=== PATIENT | male | born 1985 | race Caucasian/White ===

== ENCOUNTER 2024-03-11 14:23 | Observation (INO) ==
[2024-03-11] MEDS: ONDANSETRON INJ 2 MG/ML 2 ML VIAL IV STA (14:57)
[2024-03-11] MEDS: KETOROLAC TROMETHAMINE 15 MG/ML VIAL IV ONE (14:57)
[2024-03-11 15:04] LABS: Basophils # (auto) 0.04 K/uL (0.00-0.20); Basophils % (auto) 0.4 %; Eosinophils # (auto) 0.05 K/uL (0.00-0.50); Eosinophils % (auto) 0.5 %; Hematocrit (blood only) 45.2 % (42.0-52.0); Hemoglobin 15.4 g/dl (14.0-18.0); Immature Granulocytes # (auto) 0.02 K/uL (0.01-0.20); Immature Granulocytes % (auto) 0.2 %; Lymphocytes # (auto) 1.01 K/uL (1.20-3.40); Lymphocytes % (auto) 9.5 %; Mean Corpuscular Hgb Conc 34.1 g/dL (32.0-36.0); Mean Platelet Volume 11.3 fL (9.4-12.4); Monocytes # (auto) 0.76 K/uL (0.11-0.59); Monocytes % (auto) 7.1 %; Neutrophils # (auto) 8.75 K/uL (1.40-6.50); Neutrophils % (auto) 82.3 %; Platelet Count 220 K/uL (130-400); RDW Coefficient of Variation 12.4 % (11.5-14.5); RDW Standard Deviation 42.9 fL (36.4-46.3); Red Blood Count 4.81 M/uL (4.70-6.10); White Blood Count 10.63 K/ul (4.8-10.8)
[2024-03-11 15:20] LABS: Albumin Globulin Ratio 1.4 (0.9-2); Albumin Level 4.6 gm/dl (3.4-5.0); BUN Creatinine Ratio 10.5 (10-20); Bilirubin,Total 0.8 mg/dl (0.2-1.0); Calcium 9.5 mg/dl (8.6-10.3); Globulin 3.2 gm/dl (2.5-4.0); Total Protein 7.8 gm/dl (6.0-8.3)
--- NOTE | 2024-03-11 15:24 | Emergency Department Note ---
Impression & Plan Acute appendicitis ED Provider Note NAME: LEONOR PEREZ AGE: 38 SEX: M : 1985 ARRIVES VIA: Walk-In INFORMANT: Patient, ED PROVIDER(S): Anjel Kraus MD CHIEF COMPLAINT: Abdominal pain HPI: This 38-year-old male presenting for abdominal pain. Patient dates he has midepigastric abdominal pain that radiates into his right upper and lower quadrant. Has started since last night, persistent and worsening. Nausea without vomiting associate. No diarrhea. Able to eat but does have certain pain. Otherwise no shortness of breath, fever, chills. Never had this pain before. No previous abdominal surgeries. ROS: See above HPI for pertinent positives & negatives. A total of 10 systems reviewed and were otherwise negative. PAST MEDICAL HISTORY: See Below PAST SURGICAL HISTORY: See Below FAMILY HISTORY: See Below SOCIAL HISTORY: See Below HOME MEDICATIONS: See Below ALLERGIES: See Below VITALS: See Below PHYSICAL EXAMINATION: General: resting comfortably in no acute distress Head: Normocephalic and atraumatic Eyes: Normal inspection, extraocular muscles intact Ear, nose, throat: Normal external exam Neck: Normal range of motion Respiratory: lungs clear to auscultation bilaterally Cardiovascular: Regular rate/rhythm, no murmur GI: Midepigastric, right upper quadrant right lower quadrant tenderness to palpation, voluntary guarding Extremities: nontender, moves all extremities Neuro: The patient awake and alert, appropriately conversive, no focal deficits, symmetric faces Skin: Warm, dry, and intact MEDICAL DECISION MAKING: Is a 38-year-old male presenting for abdominal pain. Will do screening workup to include CT imaging, basic blood work, urinalysis, will give pain control IV with Toradol and antiemetic with Zofran -Bloodwork is reviewed showing no significant leukocytosis, anemia, electrolyte or creatinine abnormality -Patient CT imaging reveals acute uncomplicated appendicitis. Patient given IV Zosyn at this time, 4.5 g. Patient n.p.o. currently. Last meal was yesterday. -Care discussed with Dr. Horne for operative management. He will take the patient to the OR at 8 PM. Differential diagnosis: Appendicitis, cholecystitis, renal colic, bowel perforation, diverticulitis Independent History obtained from: Diagnostics interpreted by me: ECG: None Cardiac Monitoring: An order was placed for continuous cardiac monitoring. The monitor shows a rate of 84 with sinus rhythm. Past Med/Surg History Problem List (Updated 03/11/24 @ 19:20 by Anjel Kraus MD) Acute appendicitis (Acute) Social History Smoking Status: Never smoker Preferred Language: Martiniquais Feels Safe at Home: Yes Allergies Allergies Allergy/AdvReac Type Severity Reaction Status Date / Time PENICILLIN Allergy rash Uncoded 03/08/12 07:13 Home Meds Home Medications Medication Instructions Recorded Confirmed magnesium 1 tab PO DAILY 03/11/24 03/11/24 multivitamin 1 tab PO DAILY 03/11/24 03/11/24 omeprazole magnesium 20 mg 20 mg PO DAILY PRN Heartburn 03/11/24 03/11/24 tablet,delayed release (Prilosec OTC) Results & Data (ED) Vital Signs Vital Signs - 24 hr 03/11/24 14:28 03/11/24 15:09 03/11/24 16:22 Temperature 36.9 C Temperature Source Temporal Artery Scan Pulse Rate 97 H 91 H Pulse Rate [Apical] Pulse Rhythm Regular Pulse Strength Normal Respiratory Rate 18 Respiratory Effort / Characteristics Non-Labored Spontaneous Respiratory Depth Normal Respiratory Pattern Regular Blood Pressure 129/83 Blood Pressure [Left Arm] Blood Pressure Mean 98 Blood Pressure Mean [Left Arm] Blood Pressure Position Sitting Pulse Oximetry 98 98 Oxygen Delivery Method Room Air Room Air Sepsis Recent Fever Within 48 Hours No Sepsis New/Unexplained Change in Mental Status No Sepsis Action Taken by Nursing No Action Required 03/11/24 16:23 03/11/24 17:06 Temperature Temperature Source Pulse Rate Pulse Rate [Apical] 80 84 Pulse Rhythm Pulse Strength Respiratory Rate 16 18 Respiratory Effort / Characteristics Respiratory Depth Respiratory Pattern Blood Pressure Blood Pressure [Left Arm] 128/71 124/87 Blood Pressure Mean Blood Pressure Mean [Left Arm] 90 99 Blood Pressure Position Pulse Oximetry 99 100 Oxygen Delivery Method Sepsis Recent Fever Within 48 Hours Sepsis New/Unexplained Change in Mental Status Sepsis Action Taken by Nursing Laboratory Data 03/11/24 14:45 03/11/24 14:45 Lab Results 03/11/24 Range/Units 14:45 WBC 10.63 (4.8-10.8) K/ul RBC 4.81 (4.70-6.10) M/uL Hgb 15.4 (14.0-18.0) g/dl Hct 45.2 (42.0-52.0) % MCV 94.0 (80.0-100.0) fL MCH 32.0 (25.0-34.0) pg MCHC 34.1 (32.0-36.0) g/dL RDW Std Deviation 42.9 (36.4-46.3) fL RDW Coeff of Viky 12.4 (11.5-14.5) % Plt Count 220 (130-400) K/uL MPV 11.3 (9.4-12.4) fL Immature Gran % (Auto) 0.2 % Neut % (Auto) 82.3 % Lymph % (Auto) 9.5 % [place] % (Auto) 7.1 % Eos % (Auto) 0.5 % Baso % (Auto) 0.4 % Neut # (Auto) 8.75 H (1.40-6.50) K/uL Lymph # (Auto) 1.01 L (1.20-3.40) K/uL [place] # (Auto) 0.76 H (0.11-0.59) K/uL Eos # (Auto) 0.05 (0.00-0.50) K/uL Baso # (Auto) 0.04 (0.00-0.20) K/uL Immature Gran # (Auto) 0.02 (0.01-0.20) K/uL Sodium 136 (136-145) mmol/L Potassium 4.0 (3.5-5.1) mmol/L Chloride 102 (98-107) mmol/L Carbon Dioxide 27 (21-32) mmol/L Anion Gap 7 (3-11) BUN 10 (6-23) mg/dl Creatinine 0.95 (0.6-1.4) mg/dl Est Cr Clr Drug Dosing 102.0 ml/min eGFR 105.07 BUN/Creatinine Ratio 10.5 (10-20) Glucose 105 H (70-99(Fasting)) mg/dl Calcium 9.5 (8.6-10.3) mg/dl Total Bilirubin 0.8 (0.2-1.0) mg/dl AST 42 H (13-39) U/L ALT 18 (7-52) U/L Alkaline Phosphatase 67 (34-104) U/L Total Protein 7.8 (6.0-8.3) gm/dl Albumin 4.6 (3.4-5.0) gm/dl Globulin 3.2 (2.5-4.0) gm/dl Albumin/Globulin Ratio 1.4 (0.9-2) Lipase 10 L (11-82) U/L Administered Medications Discontinued Medications Piperacillin Sod/Tazobactam Sod (Zosyn) 4.5 gm in 100 mls @ 200 mls/hr IV NOW ONE; Protocol Stop: 03/11/24 16:35 Last Infusion: 03/11/24 17:04 Dose: Infused Documented By: Admin: 03/11/24 16:16 Dose: 200 mls/hr Documented By: SUZANNE Ioversol (Optiray 320 100ml) 90 ml IV ONCE ONE Stop: 03/11/24 15:32 Last Admin: 03/11/24 15:31 Dose: 90 ml Documented By: ANDREA Ketorolac Tromethamine (Ketorolac Tromethamine 15 Mg/Ml Vial) 15 mg IV NOW ONE Stop: 03/11/24 14:33 Last Admin: 03/11/24 14:57 Dose: 15 mg Documented By: SUZANNE Ondansetron HCl (Ondansetron Inj 2 Mg/Ml 2 Ml Vial) 4 mg IV NOW STA Stop: 03/11/24 14:33 Last Admin: 03/11/24 14:57 Dose: 4 mg Documented By: SUZANNE Imaging Data Radiologist's Impression: Abdomen/Pelvis CT 03/11/24 14:32 EXAM: CT Abdomen and Pelvis With Intravenous Contrast INDICATION: Intense abdominal pain and nausea. TECHNIQUE: Axial computed tomography images of the abdomen and pelvis with intravenous contrast. Sagittal and coronal reformatted images were created and reviewed. This CT exam was performed using one or more of the following dose reduction techniques: automated exposure control, adjustment of the mA and/or kV according to patient size, and/or use of iterative reconstruction technique. CONTRAST: 90ml of Optiray 320 was administered intravenously. COMPARISON: No relevant prior studies available. FINDINGS: Limitations: None. Lung bases: No abnormality noted. Pleural space: No visualized pleural effusion or pneumothorax. Heart: No abnormality noted. Mediastinum: No abnormality noted. ABDOMEN: Liver: No abnormality noted. Gallbladder and bile ducts: No calcified stones or surrounding fluid. Pancreas: Homogeneous enhancement. No mass, inflammation or ductal dilation. Spleen: No significant abnormality noted. Adrenals: No significant abnormality noted. Kidneys and ureters: Tiny hypodensity in the lower left kidney is likely this is too small to characterize. No further assessment required. Stomach and bowel: Mild small bowel ileus noted. Moderate colonic stool. No obstruction. PELVIS: Appendix: Mucosal thickening with surrounding inflammation. Appendix measures 1.3 mm in diameter. There is trace surrounding fluid without organization. Bladder: No filling defects to suggest mass or large stone. No inflammation. Reproductive: No abnormalities noted. ABDOMEN and PELVIS: Intraperitoneal space: No free air. No significant fluid collection. Bones/joints: No acute changes. Soft tissues: No significant abnormality noted. Vasculature: There is mild atherosclerotic plaque in the bilateral common iliac arteries. No aneurysm or dissection. Lymph nodes: No pathologically enlarged lymph nodes. IMPRESSION: Acute appendicitis without complication. ACT 112: Negative or not required by law. Electronically signed by Lizzie Funk 03-11-2024 3:53 PM Discharge Plan Visit Data Chief Complaint: Abdominal Pain Stated Complaint: SEVERE ABD, INTESTINAL PAIN ED Provider: Anjel Kraus Discharge Problem: Acute appendicitis Forms Stand Alone Forms: [facility] Prescriptions Prescriptions: No Action multivitamin [Multi-Vitamin] Tablet 1 tab PO DAILY omeprazole magnesium [Prilosec OTC] 20 mg Tablet,Delayed Release (Dr/Ec) 20 mg PO DAILY PRN (Reason: Heartburn) magnesium 1 tab PO DAILY Rx Instructions: otc, unknown dose Referrals Referrals: PCP,NO [Physician] -
[2024-03-11] MEDS: OPTIRAY 320 100ml IV ONE (15:31)
--- NOTE | 2024-03-11 15:54 | CT Scan Report ---
EXAM: CT Abdomen and Pelvis With Intravenous Contrast INDICATION: Intense abdominal pain and nausea. TECHNIQUE: Axial computed tomography images of the abdomen and pelvis with intravenous contrast. Sagittal and coronal reformatted images were created and reviewed. This CT exam was performed using one or more of the following dose reduction techniques: automated exposure control, adjustment of the mA and/or kV according to patient size, and/or use of iterative reconstruction technique. CONTRAST: 90ml of Optiray 320 was administered intravenously. COMPARISON: No relevant prior studies available. FINDINGS: Limitations: None. Lung bases: No abnormality noted. Pleural space: No visualized pleural effusion or pneumothorax. Heart: No abnormality noted. Mediastinum: No abnormality noted. ABDOMEN: Liver: No abnormality noted. Gallbladder and bile ducts: No calcified stones or surrounding fluid. Pancreas: Homogeneous enhancement. No mass, inflammation or ductal dilation. Spleen: No significant abnormality noted. Adrenals: No significant abnormality noted. Kidneys and ureters: Tiny hypodensity in the lower left kidney is likely this is too small to characterize. No further assessment required. Stomach and bowel: Mild small bowel ileus noted. Moderate colonic stool. No obstruction. PELVIS: Appendix: Mucosal thickening with surrounding inflammation. Appendix measures 1.3 mm in diameter. There is trace surrounding fluid without organization. Bladder: No filling defects to suggest mass or large stone. No inflammation. Reproductive: No abnormalities noted. ABDOMEN and PELVIS: Intraperitoneal space: No free air. No significant fluid collection. Bones/joints: No acute changes. Soft tissues: No significant abnormality noted. Vasculature: There is mild atherosclerotic plaque in the bilateral common iliac arteries. No aneurysm or dissection. Lymph nodes: No pathologically enlarged lymph nodes. IMPRESSION: Acute appendicitis without complication. ACT 112: Negative or not required by law. Electronically signed by Lizzie Funk 03-11-2024 3:53 PM
[2024-03-11] MEDS: PIPERACILLIN/TAZOBACTAM 4.5 GM/100 ML BAG IV ONE (16:16)
[2024-03-11 19:18] LABS: Appearance Urine Clear (Clear); Bilirubin Urine Negative (Negative); Blood Urine Negative (Negative); Color Urine Yellow; Glucose Urine UA Negative (Negative); Ketones Urine 1+ (Negative); Leukocyte Esterase Urine Negative (Negative); Nitrite Urine Negative (Negative); Protein Urine 1+ (Negative); Urobilinogen Urine Negative (Negative); pH Urine 5.5 (4.5-7.5)
[2024-03-11 19:30] LABS: Bacteria Urine None Seen (None Seen); Epithelial Cell Urine 0-2 /hpf (0-2); RBC Urine 0-2 /hpf (0-2); WBC Urine 0-5 /hpf (0-5)
[2024-03-11] MEDS ORDERED: PROPOFOL IV EMULSION 10 MG/ML 20 ML VIAL IV ONE (19:42)
[2024-03-11] MEDS ORDERED: DEXAMETHASONE SOD INJ 4 MG/ML VIAL ONE (19:42)
[2024-03-11] MEDS ORDERED: SUCCINYLCHOLINE CHLORIDE 20 MG/ML 10 ML VIAL IV ONE (19:42)
[2024-03-11] MEDS ORDERED: MIDAZOLAM HCL 1 MG/ML 2ML VIAL ONE (19:42)
[2024-03-11] MEDS ORDERED: ROCURONIUM BROMIDE 10 MG/ML 5 ML VIAL IV ONE (19:42)
[2024-03-11] MEDS ORDERED: ONDANSETRON INJ 2 MG/ML 2 ML VIAL ONE (19:42)
[2024-03-11] MEDS ORDERED: KETOROLAC 30 MG/ML VIAL ONE (19:42)
[2024-03-11] MEDS ORDERED: fentaNYL citrate PF 100 MCG/2 ML VIAL ONE (19:42)
[2024-03-11] MEDS ORDERED: SUGAMMADEX SODIUM 200 MG/2 ML VIAL IV ONE (19:45)
--- NOTE | 2024-03-11 19:47 | Surgery Consultation ---
Date of Consultation March 11, 2024 Assessment & Plan (1) Acute appendicitis: His CT images were personally viewed and interpreted by myself He has a dilated appendix with inflammatory changes surrounding consistent with appendicitis Will plan on a laparoscopic appendectomy, possible open Consent was obtained, risks discussed including bleeding, infection, leak, abscess History of Present Illness Reason for Consultation: Acute appendicitis History of Present Illness This is a 38-year-old male who presented to the emergency room right lower quadrant abdominal pain sharp in nature without radiation since yesterday evening. No aggravating or relieving factors. The pain did not go away and brought him to the emergency room this afternoon. He last ate a meal last night. He states he did have some chills and nausea without emesis. He denies any previous abdominal surgery. Pain is still present. He takes no prescription medications. Allergies Allergy/AdvReac Type Severity Reaction Status Date / Time PENICILLIN Allergy rash Uncoded 03/08/12 07:13 Home Medications Medication Instructions Recorded Confirmed Type magnesium 1 tab PO DAILY 03/11/24 03/11/24 History multivitamin 1 tab PO DAILY 03/11/24 03/11/24 History omeprazole magnesium 20 mg 20 mg PO DAILY PRN Heartburn 03/11/24 03/11/24 History tablet,delayed release (Prilosec OTC) Patient History Medical History (Updated 03/11/24 @ 19:53 by Jayro Warren MD) Encounter for pre-operative examination Acute appendicitis Social History Smoking Status: Never smoker Preferred Language: [place] Feels Safe at Home: Yes Review of Systems Constitutional: no fever and no chills Eyes: no blind spots, no dry eyes and no tunnel vision Ear, Nose, Mouth, Throat: no ear pain and no hearing loss Respiratory: no cough and no dyspnea Cardiovascular: no chest pain and no dyspnea on exertion Gastrointestinal: + abdominal pain; no nausea, no vomiting , no constipation and no diarrhea/loose stools Genitourinary: no dysuria or no nocturia Musculoskeletal: no back pain and no neck pain Integumentary: no acne, no changing lesions and no sores Neurologic: no gait abnormality, no paresthesia and no headache(s) Psychiatric: no behavioral changes and no depression Hematologic / Lymphatic: no easy bleeding and no easy bruising Physical Exam Constitutional: WD/WN, vitals as above Eyes: PERRL, conjunctivae normal, anicteric sclerae ENMT: external ear and nose normal, oropharynx normal Neck: trachea midline, no thyromegaly Respiratory: normal respiratory effort, lungs clear to auscultation Cardiovascular: RRR, no murmur, no edema Gastrointestinal (Abdomen): Inspection/Auscultation: abdomen normal to inspection; abdomen not distended Percussion/Palpation: + abdomen tender (Right lower quadrant) and abdomen soft; no guarding and no hernia Musculoskeletal: no cyanosis or clubbing, extremities motor strength 5/5 Skin: no rashes, warm and dry Neurologic: PERRL, EOMI, accommodation nl, no face palsy, no dysarthria Psychiatric: A+Ox3, euthymic affect Results & Data Vital Signs (Past 12 Hours) Vital Signs Temp Pulse Pulse Resp BP BP Pulse Ox 03/11/24 19:00 91 H 16 125/75 100 03/11/24 17:06 84 18 124/87 100 03/11/24 16:23 80 16 128/71 99 03/11/24 16:22 91 H 03/11/24 15:09 98 03/11/24 14:28 36.9 C 97 H 18 129/83 98 O2 Del Method 03/11/24 19:00 03/11/24 17:06 03/11/24 16:23 03/11/24 16:22 03/11/24 15:09 Room Air 03/11/24 14:28 Room Air PG Care Time/CCT Total # of Minutes Spent Total Time Spent with Patient: Total time spent is greater than 50% in coordination of care (as documented) at patient's floor/unit and/or counseling patient: Coding Level of Care Code 68597 OFFICE CONSULT LVL Diagnoses Acute appendicitis K35.80
[2024-03-11] MEDS ORDERED: fentaNYL citrate PF 100 MCG/2 ML VIAL IV PRN (19:52)
[2024-03-11] MEDS ORDERED: ePHEDrine sulfate 50 MG/ML AMP IV PRN (19:52)
[2024-03-11] MEDS ORDERED: ATROPINE SULFATE 0.1 MG/ML 10ML SYR IV PRN (19:52)
[2024-03-11] MEDS ORDERED: PROMETHAZINE HCL 6.25 MG in SODIUM CHLORIDE 0.9% 50 ML IV PRN (19:52)
[2024-03-11] MEDS ORDERED: HYDROmorphone INJ 1 MG/ML SYRINGE IV PRN (19:52)
[2024-03-11] MEDS ORDERED: ONDANSETRON INJ 2 MG/ML 2 ML VIAL IV PRN ×2 (19:52→22:18)
--- NOTE | 2024-03-11 19:54 | Anesthesiology Consultation ---
Date of Service March 11, 2024 Assessment & Plan (1) Encounter for pre-operative examination: Chart Review Chart Review: Acceptable Risk for Surgery and Patient NOT seen in Pre Admission Testing Consults Requested none History Surgery Operation Date: 03/11/24 20:30 Proposed Procedures p Laparoscopic Appendectomy - Mina Horne DO Height/Weight Height: 5 ft 8 in Weight: 76.5 kg Allergies Allergy/AdvReac Type Severity Reaction Status Date / Time PENICILLIN Allergy rash Uncoded 03/08/12 07:13 Medications Home Medications Medication Instructions Recorded Confirmed Last Taken magnesium 1 tab PO DAILY 03/11/24 03/11/24 03/11/24 multivitamin 1 tab PO DAILY 03/11/24 03/11/24 Unknown omeprazole magnesium 20 mg 20 mg PO DAILY PRN Heartburn 03/11/24 03/11/24 2 Weeks Ago tablet,delayed release (Prilosec ~02/26/24 OTC) Past Medical History Medical History (Updated 03/11/24 @ 19:53 by Jayro Warren MD) Encounter for pre-operative examination Acute appendicitis Exercise / Class Metabolic Activity II 4-5 Yardwork/Stairs/Walk up hill Past Anesthesia History No Hx of Anesthesia Complications and No Family Hx of Anesthesia Complications History of PONV No Hx of PONV and No Hx of Motion Sickness Social History Smoking Status: Never smoker Physical Exam Vital Signs Last Vital Signs Temp 36.9 C 03/11/24 14:28 Pulse 91 H 03/11/24 19:00 Resp 16 03/11/24 19:00 BP 125/75 03/11/24 19:00 Pulse Ox 100 03/11/24 19:00 O2 Del Method Room Air 03/11/24 15:09 Testing Laboratory Results 03/11/24 14:45 03/11/24 14:45 Urine Color Yellow 03/11/24 18:21 Urine Appearance Clear (Clear) 03/11/24 18:21 Urine pH 5.5 (4.5-7.5) 03/11/24 18:21 Ur Specific Juda 1.010 (1.000-1.030) 03/11/24 18:21 Urine Protein 1+ (Negative) H 03/11/24 18:21 Urine Glucose (UA) Negative (Negative) 03/11/24 18:21 Urine Ketones 1+ (Negative) H 03/11/24 18:21 Urine Nitrite Negative (Negative) 03/11/24 18:21 Ur Leukocyte Esterase Negative (Negative) 03/11/24 18:21 Urine RBC 0-2 /hpf (0-2) 03/11/24 18:21 Urine WBC 0-5 /hpf (0-5) 03/11/24 18:21 Ur Epithelial Cells 0-2 /hpf (0-2) 03/11/24 18:21
[2024-03-11] MEDS: BUPIVACAINE/EPINEPHRINE 0.25% 1:200,000 30 ML VIAL ONE (20:55)
--- NOTE | 2024-03-11 21:02 | Post Operative Brief Note ---
PG Immediate Post Op with CF Date of Surgery March 11, 2024 Pre & Post Diagnosis Operation Date: 03/11/24 20:30 Pre-Op Diagnosis: Acute Appendicitis Post-Op Diagnosis: Acute appendicitis without perforation, with small abscess I identified the patient and participated in the time-out.: Yes Procedure Operation Date: 03/11/24 20:30 Actual Procedures p Laparoscopic Appendectomy(Not Applicable) - Mina Horne DO Surgeon Mina Horne DO Bolt Machine Operator Ligia De La Rosa Estimated Blood Loss 10 Findings Consistent with Post-Op Diagnosis Specimens Specimen Description: A. Apendix Anesthesia Type General Complications none Disposition Disposition: Recovery Room
--- NOTE | 2024-03-11 21:06 | Operative Report ---
PG Post Operative Report Pre & Post Diagnosis Operation Date: 03/11/24 20:30 Pre-Op Diagnosis: Acute Appendicitis Post-op Diagnosis: Acute appendicitis without perforation I identified the patient and participated in the time-out.: Yes Procedure Operation Date: 03/11/24 20:30 Actual Procedures p Laparoscopic Appendectomy(Not Applicable) - Mina Horne DO Surgeon Mina Horne DO Gear Repairer Ligia De La Rosa Estimated Blood Loss 10 Findings See Below Small purulence within mesoappendix Specimens Appendix to pathology Drains None Anesthesia Type General Complications none Disposition Disposition: Recovery Room Indications 38 year old male with acute appendicitis Description of Procedure The patient was brought to the OR and placed in the supine position and SCD's placed. At this time he underwent general endotracheal anesthesia without incident. At this time a Prince catheter was placed under sterile conditions. His abdomen was prepped and draped in the usual sterile fashion. He was given appropriate pre-operative antibiotics. A timeout was called, the procedure was verified as Laparoscopic appendectomy, possible open. Surgical, anesthesia and nursing teams agreed and the procedure was begun. After injection of 0.25% Marcaine with epinephrine, a supraumbilical incision was made using a #11 blade scalpel and carried down to the fascia with a hemostat. The abdomen was then elevated with towel clamps and entered using the Veress needle confirming position using the saline drop test. Pneumoperitoneum was established and 5mm trocar was placed. Laparoscope was introduced. No injury was seen from our entrance to the abdomen. At this time a 5mm suprapubic port and 12mm LLQ port were placed under direct visualization. The patient was placed in Trendelenburg and rotated to the left. At this time the appendix was visualized and the tip was freed and elevated toward the abdominal wall. The appendix appeared inflamed, dilated and edematous. A window was created in the mesoappendix at the base of the appendix. A small amount of purulence was encountered upon dissecting the mesoappendix from the lateral peritoneal attachement. A 45mm purple load stapler was then fired across the base of the appendix which appeared healthy. The mesoappendix was then taken using Harmonic device. The appendix was then placed in an Endocatch bag and removed through the LLQ port site. Staple line was inspected and was intact. Hemostasis was complete. The 12 mm port was then closed at the fascial level using a 0 Vicryl suture using the suture passer. All ports were removed under direct visualization and no bleeding was noted. The abdomen was desufflated and the skin was closed using 4-0 Monocryl in a subcuticular fashion. Sterile dressings were applied. Prince catheter was removed. The patient was then awakened from anesthesia having remained stable throughout the entire case and transported to PACU. All needle and sponge counts were correct x 2. The physician events assistant was present and scrubbed for the entire procedure. She was essential in positioning, prepping and draping the patient, driving the laparoscope, closure of the incisions and placement of the dressings. I attest to the content of the Intraoperative Record and any orders documented therein. Any exceptions are noted below.
--- NOTE | 2024-03-11 21:30 | Anesthesiology Progress Note ---
Date of Service March 11, 2024 Anesthesia Post Procedure Vital Signs Vital Signs: Temp Pulse Pulse Resp BP BP Pulse Ox 03/11/24 19:00 91 H 16 125/75 100 03/11/24 17:06 84 18 124/87 100 03/11/24 16:23 80 16 128/71 99 03/11/24 16:22 91 H 03/11/24 15:09 98 03/11/24 14:28 36.9 C 97 H 18 129/83 98 O2 Del Method 03/11/24 19:00 03/11/24 17:06 03/11/24 16:23 03/11/24 16:22 03/11/24 15:09 Room Air 03/11/24 14:28 Room Air Transfer of Care Handoff Completed per policy Notes Mental Status: alert / awake / arousable and participated in evaluation Patient Amnestic to Procedure: Yes Nausea / Vomiting: adequately controlled Pain: adequately controlled Airway Patency, RR, SpO2: stable & adequate BP & HR: stable & adequate Hydration State: stable & adequate Anesthetic Complications: no major complications apparent and Pt Satisfied with anesthetic care
[2024-03-11] MEDS ORDERED: ACETAMINOPHEN 500 MG TAB PO PRN (22:18)
[2024-03-11] MEDS ORDERED: oxyCODONE HCL IR 5 MG TAB (IMMEDIATE RELEASE) PO PRN ×2 (22:18)
[2024-03-11] MEDS ORDERED: PANTOprazole 40 MG TAB PO PRN (22:23)
[2024-03-11] MEDS: PIPERACILLIN/TAZOBACTAM 4.5 GM/100 ML BAG IV SCH (22:52)
[2024-03-12] MEDS: KETOROLAC TROMETHAMINE 15 MG/ML VIAL IV PRN (05:42)
[2024-03-12 06:46] VITALS: RESP 16; O2SAT 94
[2024-03-12 07:17] VITALS: BP 106/64; PULSE 75; TEMP 97.3
[2024-03-12] MEDS: MULTIVITAMIN TAB PO SCH (08:21)
[2024-03-12] MEDS: MAGNESIUM OXIDE 400 MG TAB PO SCH (08:21)
--- NOTE | 2024-03-12 09:01 | Surgery Progress Note ---
Date of Service March 12, 2024 Assessment & Plan (1) Acute appendicitis: Plan: POD 1 lap appy expected post surgical discomfort umbilical dressing saturated, changed 2x2 and Tegaderm may remove dressing tomorrow VSS oral pain medication and antibiotics sent stable for d/c f/u op 2 weeks Admission and Anticipated Discharge Date Admission Date: March 11, 2024 Subjective pain tolerable denies n/v , f/c Review of Systems Constitutional: no fever and no chills Cardiovascular: no chest pain Gastrointestinal: + abdominal pain; no nausea and no vomit ing Musculoskeletal: no muscle weakness Psychiatric: no confusion Physical Exam Constitutional: cooperative and comfortable; no acute distress Respiratory: normal respiratory effort; no respiratory distress Cardiovascular: Rate/Rhythm: regular rate Gastrointestinal (Abdomen): Inspection/Auscultation: + abdominal surgical incision; abdomen not distended Percussion/Palpation: abdomen soft Musculoskeletal: no cyanosis or clubbing, extremities motor strength 5/5 Psychiatric: A+Ox3, euthymic affect Results & Data Vital Signs (Past 12 Hours) Vital Signs Temp Pulse Pulse Resp BP BP Pulse Ox 03/12/24 07:16 97.3 F L 75 16 106/64 94 03/12/24 06:45 97.5 F L 76 16 102/66 94 03/12/24 01:17 98.1 F 78 14 109/67 95 03/12/24 00:22 98.4 F 73 16 105/64 94 03/11/24 23:17 98.6 F 81 14 105/65 93 03/11/24 22:45 98.6 F 87 16 105/64 93 03/11/24 22:10 99.0 F 88 16 105/64 93 03/11/24 22:00 87 18 112/59 L 92 03/11/24 21:50 94 H 18 106/55 L 92 03/11/24 21:40 99 H 17 113/54 L 94 03/11/24 21:30 96 H 21 114/62 98 03/11/24 21:22 99.1 F 98 H 17 122/66 100 O2 Del Method O2 Flow Rate 03/12/24 07:16 Room Air 03/12/24 06:45 Room Air 03/12/24 01:17 Room Air 03/12/24 00:22 Room Air 03/11/24 23:17 Room Air 03/11/24 22:45 Room Air 03/11/24 22:10 Room Air 03/11/24 22:00 Room Air 0 03/11/24 21:50 Room Air 0 03/11/24 21:40 Room Air 0 03/11/24 21:30 Oxymask 4 03/11/24 21:22 Oxymask 8 PG Care Time/CCT Total # of Minutes Spent Total Time Spent with Patient: Total time spent is greater than 50% in coordination of care (as documented) at patient's floor/unit and/or counseling patient: Coding Level of Care Code 52797 Post Operative Follow-Up Diagnoses Acute appendicitis K35.80
--- NOTE | 2024-03-12 10:59 | Discharge Summary ---
Date of Service March 12, 2024 Principal Diagnosis acute appendicitis Discharge Exam Constitutional cooperative and comfortable; no acute distress Respiratory normal respiratory effort; no respiratory distress Cardiovascular Rate/Rhythm: regular rate Gastrointestinal (Abdomen) Inspection/Auscultation: + abdominal surgical incision; abdomen not distended Percussion/Palpation: abdomen soft Musculoskeletal no cyanosis or clubbing, extremities motor strength 5/5 Psychiatric A+Ox3, euthymic affect Discharge Data Allergies Allergy/AdvReac Type Severity Reaction Status Date / Time PENICILLIN Allergy rash Uncoded 03/08/12 07:13 Consultations 03/11/24 16:55 ED Decision to Admit Stat Procedures Performed Operation Date: 03/11/24 20:30 Actual Procedures p Laparoscopic Appendectomy(Not Applicable) - Mina Horne DO Ordered Studies 03/11/24 14:32 CT abd pelvis IV con only Stat Hospital Course (1) Acute appendicitis: This is a 38 yo male who presented to the [facility] ED on 03/11/24 with abdominal pain. Workup in the ED showed a CT a/p concerning for acute appendicitis (see HPI for full details). Patient was made NPO with IVF and booked for the OR. On 03/11/24 the patient went to the OR with Dr Horne for a laparoscopic appendectomy. The patient tolerated the procedure well, see operative report for full details. Post operatively the patient's diet was advanced, pain managed on prn meds, and incisions clean/dry/intact. On POD#1 the patient was deemed stable for discharge to home. The patient was given discharge instructions, follow up recommendations, return precautions and a prescription for oral antibiotics and narcotics. Total Time Total Time Spent Total Time Spent (In Minutes): 5 Discharge Plan Discharge Items Patient Disposition: Home - Self-Care Reason For Visit: APPENDICITIS Discharge Diagnosis: acute appendicitis Activity: As commented below Lifting: No more than 10 pounds Bathing Comment: you can shower , NO soaking in pools/baths for 2 weeks Driving/Machine Use: No driving if taking narcotic pain medication Non-emergency contact: Surgeon Call non-emergency contact if: you have any medication questions, your symptoms worsen, your temperature is above 101, your wound has increased redness, your wound has increased drainage and your wound pain has increased Follow-up/Referrals: Mina Horne DO [Physician] - (f/u in 2 weeks for post-op check up ) PCP,NO [Physician] - Diet: Regular Addtl Attending Provider Instructions: SPECIAL CARE INSTRUCTIONS: You may remove your outer surgical dressing on 03/13/24. You will have small white bandages on underneath that are over your incision. You may shower with these on. They will tend to fall off on their own in a 7-10 days. * You may shower on 03/13 . NO soaking in pools, hot tubs, or baths for 2 weeks * No lifting greater than 10lbs. No exercise until cleared by surgeon. Light walking is accepted. * No driving while taking narcotic pain medication * No drinking alcohol while taking narcotic pain medication * May use Ibuprofen/Tylenol over the counter for pain as tolerated. Do not exceed 3grams of Tylenol per 24 hours * Expect some swelling and bruising. * Diet as normal Call your doctor if: * Temperature above 101 degrees, nausea/vomiting, fever/chills * Pain not relieved by pain medicine ordered * There is increased drainage or redness from any incision * You have any unanswered questions or concerns [phone]. FOLLOW UP VISIT: If not already scheduled, please call the office for a follow-up visit. Office Continue to take all your antibiotics prescribed to you Pending Studies at Discharge: Yes Studies:: surgical pathology Stand-Alone Forms: [facility], Pain - Opioid Pain Management Medications and DC Order Prescriptions: New oxycodone 5 mg tablet 5 - 10 mg PO .a1b-s4h MDD no more than 6 tabs in 24hours PRN (Reason: pain) Qty: 15 0RF ciprofloxacin HCl 500 mg tablet 500 mg PO Q12H Qty: 20 0RF metronidazole 500 mg tablet 500 mg PO TID Qty: 30 0RF Continued multivitamin Tablet 1 tab PO DAILY omeprazole magnesium [Prilosec OTC] 20 mg Tablet,Delayed Release (Dr/Ec) 20 mg PO DAILY PRN (Reason: Heartburn) magnesium 1 tab PO DAILY Rx Instructions: otc, unknown dose Discharge Orders: Discharge Order (Routine); Ordered 03/12/24 Ordered By: Mila Garcia/Other Patient Handouts: DVT Post Op Prevention Admission Data Admit Date/Time: 03/11/24 21:34 Attending Provider: Mina Horne Admit Provider: Mina Horne Primary Care Provider: [facility] Other Providers: Mina Horne Other Interventions: Discharge Summary Assessment (RN) Last Done: 03/12/24 09:26 Coding Level of Care Code 48118 IN/OBS DISCH 30 MIN/LESS Diagnoses Acute appendicitis K35.80
--- OUTSIDE RECORDS SUMMARY | 2024-03-13 03:16 | External Medical Summary | Summary of Care ---
Author Name Unknown Organization [facility] Address [address] [place] [address] Phone [phone] Care Team Providers Care [employer] Name Role Phone Unavailable Primary Care Provider Unavailabl e Encounter Details Date Type Department Care Team (Late st Contact Info) Description 12/30/2023 9:20 AM EDT Immunization [facility] [address] [address] [facility] [address] [place] [address] Arrived Allergies Active Allergy Reactions Criticality Noted Date Comments Penicillins Rash Medium 10/15/2011 20 years ago documented as of this encounter (statuses as of 12/30/2023) Medications Medication Sig Dispensed Refills Start Date End Date Status omeprazole (PRILOSEC) 20 MG CPDRIndications:Gas troesophageal reflux disease, esophagitis presence not specified Take 1 Cap by mouth daily. 1 hour before the first meal of the day 30 Cap 1 12/22/2019 Active Additional Information Patient not taking.Reported on 10/12/2022 Celecoxib 200 MG Oral Capsule (CeleBREX) Take 1 Capsule by mouth in the morning. In the morning.. 30 Capsule 5 09/28/2022 Active Additional Information Patient not taking.Reported on 11/12/2022 Diclofenac Sodium 1 % External Gel (Voltaren) Apply topically to affected area 3 times a day as needed for Pain. Apply to affected area 100 g 2 11/12/2022 Active documented as of this encounter (statuses as of 12/30/2023) Active Problems Problem Noted Date Diagnosed Date Deviated nasal septum 10/15/2011 documented as of this encounter (statuses as of 12/30/2023) Immunizations Name Administration Dates Next Due COVID-19 mRNA, LNP-s, No Pre serve, 2-Dose Series (GliaCure) 04/02/2021 Seasonal Influenza, PF, 6 M & above, IM , (FluLaval or Fluzone) 01/31/2021,12/22/2019,06/06/2019, 0 18,02/19/2017 Seasonal Influenza, Trivalen t, (IIV3), PF, (Fluzone) 12/30/2023 TDAP (age 10 and older)(Boostrix) 12/22/2019 documented as of this encounter Social History Tobacco Use Types Packs/Day Years Used Date Smoking Tobacco: Some Days Smokeless Tobacco: Never Comments:Pt does not current ly smoke only smoked on rare occasions. Alcohol Use Standard Drinks/Week Comments Yes 14 (1 standard drink = 0.6 oz pu re alcohol) PHQ-2 Answer Date Recorded PHQ-2 Score 0 02/08/2018 Hunger Vital Sign Answer Date Recorded Within the past 12 months, y ou worried that your food would run out before you got the money to buy more. Never true 09/24/19 23 Within the past 12 months, t he food you bought just didn't last and you didn't have money to get more. Never true 09/23/2022 Childcare Answer Date Recorded Do you feel overwhelmed with taking care of a child, family member or friend? No 09/23/2022 Does your family need help f inding childcare? (Household - for ages 0-17 years) Not on file 09/23/2022 Clothing Answer Date Recorded Have you been unable to get clothing when it was really needed? No 09/23/2022 Is your family able to get c lothes or diapers when needed? (Household - for ages 0-17 years) Not on file 09/23/2022 Personal Safety Answer Date Recorded Do you feel unsafe or have concerns for your saf ety? No 09/23/2022 Do you have concerns for you r family's safety? (Household - for ages 0-17 years) Not on file 09/23/2022 Utilities Answer Date Recorded Do you have trouble paying y our heating, water, or electric bill? (Adult - for ages 18 years and over) Not on file 10/05/2023 Is your family able to pay t he heat, water, or electric bill? (Household - for ages 0-17 years) Not on file 10/05/2023 Does your family have access to good internet? (Household - for ages 0-17 years) Not on file 10/05/2023 Employment Status Answer Date Recorded Are you unemployed or without regular income? No 09/23/2022 Does the household have a re gular source of income? (Household - for ages 0-17 years) Not on file 09/23/2022 Social Connections Answer Date Recorded How often do you feel lonely or isolated from those around you? (Adult - for ages 18 years and over) Not on file 10/05/2023 Financial Resource Strain Answer Date R ecorded Do you have any trouble payi ng for your medications, or do you think you might in the future? No 09/23/2022 Does your family have troubl e paying for medicine? (Household - for ages 0-17 years) Not on file 09/23/2022 Transportation Needs Answer Date Record ed READ ONLY Do you have troubl e getting a ride to medical visits or work? Never True 09/23/2022 Does your family have a hard time getting a ride to doctors visits? (Household - for ages 0-17 years) Not on file 09/23/2022 Has lack of transportation k ept you from medical appointments, meetings, work, or from getting things needed for daily living? Check all that apply. (Adult - for ages 18 years and over) Not on file 09/23/2022 Do you (or your family) have trouble finding or paying for a ride (transportation)? (Household - for ages 0-17 years) Not on file 09/23/2022 Housing Stability Answer Date Recorded Do you currently live in a s helter or have no steady place to sleep at night? No 09/23/2022 READ ONLY Do you think you a re at risk of becoming homeless? No 09/23/2022 Does your family worry about paying for your home or becoming homeless? (Household - for ages 0-17 years) Not on file 0 09/23/2022 Are you homeless or worried that you might be in the future? (Adult - for ages 18 years and over) Not on file 3 Are you (or your family) dorian eless or worried that you might be in the future? (Household - for ages 0-17 years) Not on file Food Insecurity Answer Date Recorded Do you need food for this week? No 09/23/2022 Are you able to get enough f ood for your family? (Household - for ages 0-17 years) Not on file 09/23/2022 Does your family need food t his week? (Household - for ages 0-17 years) Not on file 09/23/2022 Do you always have enough fo od for your family? (Household - for ages 0-17 years) Not on file 09/23/2022 Sex and Gender Information Value Date Recorded Sex Assigned at Male 09/23/2022 11:57 AM EDT Gender Identity Male 09/23/2022 11:57 AM EDT Sexual Orientation Straight 09/23/2022 11 :57 AM EDT Job Start Date Occupation Industry Not on file Not on file Not on file documented as of this encounter Plan of Treatment Upcoming Encounters Date Type Department Care Team (Late st Contact Info) Description 01/06/2024 4:15 PM EDT Immunization [facility] [address] [place] [address] [place], Covid19 Vaccine [facility] [address] [place] [address] Health Maintenance Due Date Last Done Comments Diabetes Screening 1985 Pneumococcal Vaccine: Pediatrics (0 to 5 Years) and At-Risk Patients (6 to 64 Years) (1 of 2 - PCV) 10/03/1991 HIV Screening 2000 Hepatitis C Screening 10/03/2003 Hepatitis B Vaccine (1 of 3 - 19+ 3-dose series) 2004 Depression Screening 02/19/2018 02/19/2017 COVID-19 Vaccine (2 - season) 2023 04/02/2021 Influenza Vaccine (FLU shot) (#1) 2023 12/30/2023, 01/31/2021, 12/22/2019, Additional history exists DTap/Tdap Vaccines (2 - Td or Tdap) 12/21/2029 12/22/2019 HPV (Gardasil) Vaccine Aged Out No lo nger eligible based on patient's age to complete this topic MENINGOCOCCAL (MENACTRA/MENVEO) Aged Out No longer eligible based on patient's age to complete this topic documented as of this encounter Medical Devices Not on filedocumented as of this encounter
== END 2024-03-12 10:27 | disposition home or self-care (01) ==
LOC: ED 14:23 → 3N 19:47 → OR 19:47